=== PATIENT | female | born 2000 ===

== ENCOUNTER → 2022-03-04 | Outpatient (CLI) | payer BC ==
[2022-03-06 01:07] LABS: CHLAMYDIA TRACHOMATIS, NAA Negative (Negative)
== END | disposition home or self-care (01) ==
LOC: LAB SHORT 17:01 → LAB 17:01
PROVIDERS: Advanced Practice Midwife
DX: Z11.3 Encounter for screening for infections with a predominantly sexual mode of transmission (principal)
CPT/HCPCS: 87491; 87591

== ENCOUNTER → 2023-03-11 | Outpatient (CLI) | payer BC ==
[2023-03-18 14:11] LABS: CHLAMYDIA TRACHOMATIS, NAA Negative (Negative); HPV APTIMA Negative (Negative)
== END ==
LOC: LAB SHORT 12:37 → LAB 12:37
PROVIDERS: Family Medicine
DX: Z01.419 Encounter for gynecological examination (general) (routine) without abnormal findings (principal); Z11.3 Encounter for screening for infections with a predominantly sexual mode of transmission
CPT/HCPCS: 87491; 87591; G0145